=== PATIENT | male | born 1960 | race Caucasian/White ===

== ENCOUNTER 2020-03-11 07:05 | Day surgery (SDC) | payer OTHER, SELFPAY ==
[~2020-03-11] VITALS: Ht 167.6 cm; Wt 49.9 kg
[2020-03-11] MEDS ORDERED: diphenhydrAMINE 50 MG/ML VIAL ONE (08:48)
[2020-03-11] MEDS ORDERED: MIDAZOLAM 2 MG/2 ML VIAL ONE ×2 (08:48→09:10)
[2020-03-11] MEDS ORDERED: fentaNYL citrate 0.05 MG/ML VIAL ONE (08:48)
[2020-03-11] MEDS ORDERED: LIDOCAINE 2% 100 MG/5 ML UJET TP ONE (08:49)
[2020-03-11] MEDS ORDERED: fentaNYL citrate 0.05 MG/ML VIAL IVP ONE (10:15)
[2020-03-11] MEDS ORDERED: MIDAZOLAM 2 MG/2 ML VIAL IVP ONE (10:15)
== END 2020-03-11 10:40 | disposition home or self-care (01) ==
LOC: MDS 07:05 → MFCC 07:09 → MDS 10:40
PROVIDERS: ATTEND Internal Medicine Gastroenterology
DX: R63.4 Abnormal weight loss (principal); K57.30 Diverticulosis of large intestine without perforation or abscess without bleeding; K64.9 Unspecified hemorrhoids; J44.9 Chronic obstructive pulmonary disease, unspecified; F17.200 Nicotine dependence, unspecified, uncomplicated; I10 Essential (primary) hypertension; F41.9 Anxiety disorder, unspecified; Z98.0 Intestinal bypass and anastomosis status; Z11.59 Encounter for screening for other viral diseases
CPT/HCPCS: 43239; 45380; J2250; J3010; U0003; J1200